=== PATIENT | male | born 1950 | race African-American/Black ===

== ENCOUNTER 2017-10-07 09:12 | Emergency (ER) | payer OTHER, MEDICARE ==
[2017-10-07] MEDS ORDERED: Ketorolac Tromethamine 30 MG/ML VIAL ONE (09:55)
[2017-10-07 11:37] LABS: Bilirubin Negative (Negative); Blood, Urine Negative (Negative); Clarity CLEAR (Clear); Glucose, Urine (Dipstick) Negative (Negative); Leukocyte Small (Negative); Nitrite Negative (Negative); Protein, Urine (Dipstick) 100 mg/dL (Neg-Trace); Specific Gravity, Urine 1.007 (1.002-1.036); Urobilinogen 0.2 mg/dL (0.2-1.0)
--- NOTE | 2017-10-07 11:38 | RAD ---
RADIOGRAPH LUMBAR SPINE 3 VIEWS: Date: 10/07/17 HISTORY: 67-year-old male with low back pain. COMPARISON: None. FINDINGS: There are five lumbar-type vertebrae. No scoliosis. There is mild anterior wedge compression loss of height of T10, T11, T12, L1, and to a lesser degree L2, of indeterminate ages. Moderate disc space na rrowing at L4-5 and L5-S1. Slight degenerative retrolisthesis of L5 on S1. No major spondylolisthesis . IMPRESSION: 1. Mild anterior wedge compression loss of height of multiple levels in the lower thoracic spine and upper lumbar spine, of indeterminate age. It is presumed that at least most or all are chronic, unle ss there has been recent trauma. 2. Degenerative disc disease at L4-5 and L5-S1. NIKA [] POS: LUIS
[2017-10-07 11:40] LABS: Bacteria/HPF None Seen HPF (None Seen); Hyaline Casts/LPF 0-3 HYALINE CAST LPF (0-3 Hyaline); Pathc Cast-AUWi Flag 0.29 (0-2.49); Squamous Epithelial 0-3 HPF (0-3)
[2017-10-07] MEDS ORDERED: traMADol HCl 50 MG TAB ONE (12:18)
== END 2017-10-07 13:13 | disposition home or self-care (01) ==
LOC: ERS 09:12
DX: M54.5 Low back pain (principal); I10 Essential (primary) hypertension; F17.210 Nicotine dependence, cigarettes, uncomplicated; Z71.6 Tobacco abuse counseling; X50.0XXA Overexertion from strenuous movement or load, initial encounter
CPT/HCPCS: 72100; 81003; 81015; 96372; 99406; J1885

== ENCOUNTER 2020-04-09 10:20 | Emergency (ER) | payer OTHER, MEDICARE ==
[2020-04-09] MEDS ORDERED: Ketorolac Tromethamine 30 MG/ML VIAL ONE (11:30)
--- NOTE | 2020-04-09 12:26 | RAD ---
PA CHEST AND LEFT RIBS: Total of 4 views. HISTORY: Fall with injury to left chest. FINDINGS: Lungs appear clear on the PA chest. Heart and mediastinum unremarkable. Review of the left ribs reveals a nondisplaced fracture of the posterolateral left 9th rib seen best on only one oblique image. No other rib fracture or rib lesion identified. IMPRESSION: Nondisplaced fracture posterolateral left 9th rib. POS: AGW
== END 2020-04-09 12:21 | disposition home or self-care (01) ==
LOC: ERS 10:20
DX: S22.32XA Fracture of one rib, left side, initial encounter for closed fracture (principal); I10 Essential (primary) hypertension; F17.210 Nicotine dependence, cigarettes, uncomplicated; Z79.899 Other long term (current) drug therapy; W19.XXXA Unspecified fall, initial encounter
CPT/HCPCS: 96372; J1885

== ENCOUNTER 2024-05-01 09:18 | Emergency (ER) | payer OTHER, MEDICARE ==
[2024-05-01 09:42] LABS: #Basophils 0.06 10x3/uL (0.0-0.2); %Basophils 0.6 % (0.0-1.0); %Eosinophils 2.7 % (0.0-10.0); %Lymphocytes 22.3 % (21.0-51.0); %Monocytes 7.3 % (0.0-10.0); %Neutrophils 66.4 % (42.0-75.0); Hematocrit 25.2 % (42.0-52.0); Mean Corpuscular HGB CONC 35.7 g/dL (32.0-36.0); Mean Corpuscular Volume 86.9 fL (78.0-98.0); Mean Platelet Volume 8.5 fL (7.4-10.4); Platelet Count 282 10x3/uL (130-400); RBC Distribution Width 14.1 % (11.5-14.5)
[2024-05-01 10:11] LABS: ALT (SGPT) Less than 7 U/L (Less than 45); AST (SGOT) 32 U/L (11-34); Albumin 3.7 g/dL (3.1-4.5); Alkaline Phosphatase 74 U/L (40-110); Anion Gap 16 mmol/L (10-20); BUN (Urea Nitrogen) 23 mg/dL (8.4-25.7); Bilirubin, Total 0.6 mg/dL (0.3-1.2); Calc. Creatinine Clearance 0 mL/min (70-130); Calcium 9.1 mg/dL (7.8-10.44); Carbon Dioxide 16 mmol/L (23-31); Chloride 99 mmol/L (98-107); Estimated GFR 35; Globulin 4.6 g/dL (2.4-3.5); Glucose 108 mg/dL (83-110); Lipase 21 U/L (8-78); Potassium 4.4 mmol/L (3.5-5.1); Protein, Total 8.3 g/dL (5.8-8.1); Sodium 127 mmol/L (136-145)
[2024-05-01 10:25] LABS: Troponin I 0.027 ng/mL (< 0.028)
[2024-05-01 13:31] LABS: Troponin I 0.031 ng/mL (< 0.028)
[2024-05-01] MEDS ORDERED: Aspirin Chewable 81 MG TAB ONE (14:55)
== END 2024-05-01 15:41 | disposition home or self-care (01) ==
LOC: ERS 09:18
DX: R07.9 Chest pain, unspecified (principal); I10 Essential (primary) hypertension; F17.210 Nicotine dependence, cigarettes, uncomplicated
CPT/HCPCS: 36415; 71045; 80053; 83690; 84484; 85025; 93005